=== PATIENT | male | born 1980 | race Hispanic/Latino ===

== ENCOUNTER 2017-08-23 09:12 | Emergency (ER) | payer OTHER ==
[2017-08-23] MEDS: CYCLOBENZAPRINE 10 MG TAB PO (10:44)
[2017-08-23] MEDS: KETOROLAC 60 MG/2 ML VIAL (J1885) IM (10:45)
[2017-08-23] MEDS: NORCO, ANEXSIA 5/325MG TABLET (HYDROcodone/ACETAMINOPHEN) PO (12:32)
== END 2017-08-23 12:41 | disposition home or self-care (01) ==
LOC: M ED 09:12
DX: M79.605 Pain in left leg (principal); M54.16 Radiculopathy, lumbar region; F17.200 Nicotine dependence, unspecified, uncomplicated
CPT/HCPCS: J1885